=== PATIENT | female | born 1995 | race Caucasian/White ===

== ENCOUNTER 2016-10-03 22:20 | Emergency (ER) | payer OTHER ==
[2016-10-03 22:41] VITALS: BP 117/67; PULSE 87; TEMP 98.1; BMI 23.8
[2016-10-03 22:53] LABS: URINE APPEARANCE CLOUDY; URINE BILIRUBIN NEGATIVE (NEGATIVE); URINE COLOR RED; URINE GLUCOSE (UA) NEGATIVE (NEGATIVE); URINE KETONE NEGATIVE (NEGATIVE); URINE NITRITE NEGATIVE (NEGATIVE); URINE UROBILINOGEN NEGATIVE E.U./dl (0.2-1.0)
[2016-10-03 22:54] LABS: URINE BLOOD 3+ (NEGATIVE); URINE LEUK ESTERASE 2+ (NEGATIVE); URINE PROTEIN 2+ (NEGATIVE)
[2016-10-03 22:57] LABS: URINE RBC 3376 /hpf (0-3); URINE WBC 265 /hpf (3-5); YEAST MANY
--- NOTE | 2016-10-03 23:12 | PDOC ---
History of Present Illness <Korin Beckford - Last Filed: 10/03/16 23:32> - History of Present Illness Initial Comments: 10/03/16 23:27 Patient is a 20 year old female with significant medical hx of hemorrhagic cystitis who is presenting to the ED for four days of hematuria. Patient complains of associated pelvic pain, lower back pain, dysuria, nausea and chills. Today the patient had over ten episodes of blood in her urine. She reports it is similar to her episode of hemorrhagic cystics several years ago. no pmh here for hematuria 4 days of pelvic pain lower back pain today she had over 10 episodes of blood in the urine. <Pilar Vazquez - Last Filed: 10/03/16 23:49> - General Chief Complaint: Hematuria Stated Complaint: HEMATURIA Time Seen by Provider: 10/03/16 22:32 Past History - Past Medical History Asthma: No Cancer: No Cardiac Disorders: No Diabetes: No HTN: No Seizures: No Thyroid Disease: No - Immunization History Immunization Up to Date: Yes - Psycho/Social/Smoking Cessation Hx Anxiety: No Suicidal Ideation: No Smoking Status: No Smoking History: Never smoked Number of Cigarettes Smoked Daily: 0 Information on smoking cessation initiated: No Hx Alcohol Use: No Drug/Substance Use Hx: No Substance Use Type: None Hx Substance Use Treatment: No <Korin Beckford - Last Filed: 10/03/16 23:32> <Pilar Vazquez - Last Filed: 10/03/16 23:49> - Past Medical History Allergies/Adverse Reactions: Allergies Allergy/AdvReac Type Severity Reaction Status Date / Time No Known Allergies Allergy Verified 10/03/16 22:28 Home Medications: Ambulatory Orders Acetaminophen [Tylenol] 650 mg PO PRN 10/03/16 Miconazole Nitrate [Monistat-7] 100 mg PV HS #7 supp.vag 10/03/16 Sulfamethoxazole/Trimethoprim [Bactrim Ds -] 1 tab PO BID #20 tablet 10/03/16 Review of Systems - Review of Systems Comments:: 10/03/16 23:45 CONSTITUTIONAL: Present: chills Absent: fever, diaphoresis, generalized weakness, malaise, loss of appetite HEENT: Absent: rhinorrhea, nasal congestion, throat pain, throat swelling, difficulty swallowing, mouth swelling, ear pain, eye pain, visual changes CARDIOVASCULAR: Absent: chest pain, syncope, palpitations, irregular heart rate, lightheadedness , peripheral edema RESPIRATORY: Absent: cough, shortness of breath, dyspnea with exertion, orthopnea, wheezing, stridor, hemoptysis GASTROINTESTINAL: Present: nausea Absent: abdominal pain, abdominal distension, vomiting, diarrhea, constipation, melena, hematochezia GENITOURINARY: Present: hematuria, dysuria Absent: frequency, urgency, hesitancy, flank pain, genital pain MUSCULOSKELETAL: Present: lower back pain, pelvic pain Absent: myalgia, arthralgia, joint swelling SKIN: Absent: rash, itching, pallor HEMATOLOGIC/IMMUNOLOGIC: Absent: easy bleeding, easy bruising, lymphadenopathy, frequent infections ENDOCRINE: Absent: unexplained weight gain, unexplained weight loss, heat intolerance, cold intolerance NEUROLOGIC: Absent: headache, focal weakness or paresthesia, dizziness, unsteady gait, seizure, mental status changes, bladder or bowel incontinence. PSYCHIATRIC: Absent: anxiety, depression, suicidal or homicidal ideation, hallucinations <Pilar Vazquez - Last Filed: 10/03/16 23:49> *Physical Exam - Vital Signs Last Vital Signs Temp Pulse Resp BP Pulse Ox 98.1 F 87 14 117/67 98 10/03/16 22:28 10/03/16 22:28 10/03/16 22:28 10/03/16 22:28 10/03/16 22:28 <Korin Beckford - Last Filed: 10/03/16 23:32> - Vital Signs Last Vital Signs Temp Pulse Resp BP Pulse Ox 98.1 F 87 14 117/67 98 10/03/16 22:28 10/03/16 22:28 10/03/16 22:28 10/03/16 22:28 10/03/16 22:28 - Physical Exam Comments: 10/03/16 23:48 GENERAL: Well developed, well nourished. Awake and alert. No acute distress. HEENT: Normocephalic, atraumatic. PERRLA, EOMI. No conjunctival pallor. Sclera are non- icteric. Moist mucous membranes. Oropharynx is clear. NECK: Supple. Full ROM. No JVD. Carotid pulses 2+ and symmetric, without bruits. No thyromegaly. No lymphadenopathy. CARDIOVASCULAR: Regular rate and rhythm. No murmurs, rubs, or gallops. Distal pulses are 2+ and symmetric. PULMONARY: No evidence of respiratory distress. Lungs clear to auscultation bilaterally. No wheezing, rales or rhonchi. ABDOMINAL: Soft. Non-tender. Non-distended. No rebound or guarding. No organomegaly. Normoactive bowel sounds. MUSCULOSKELETAL: Normal range of motion at all joints. No bony deformities or tenderness. No CVA tenderness. EXTREMITIES: No cyanosis. No clubbing. No edema. No calf tenderness. SKIN: Warm and dry. Normal capillary refill. No rashes. No jaundice. NEUROLOGICAL: Alert, awake, appropriate. Cranial nerves 2-12 intact. Normal speech. Gait is normal without ataxia. PSYCHIATRIC: Cooperative. Good eye contact. Appropriate mood and affect. <Pilar Vazquez - Last Filed: 10/03/16 23:49> ED Treatment Course - ADDITIONAL ORDERS Additional order review: Laboratory Results 10/03/16 22:11 Urine Color Red Urine Appearance Cloudy Urine pH 6.0 Ur Specific [place] 1.011 Urine Protein 2+ H Urine Glucose (UA) Negative Urine Ketones Negative Urine Blood 3+ H Urine Nitrite Negative Urine Bilirubin Negative Urine Urobilinogen Negative Ur Leukocyte Esterase 2+ H Urine RBC 3376 Urine WBC 265 Urine Yeast Many Urine HCG, Qual Negative <Korin Beckford - Last Filed: 10/03/16 23:32> - ADDITIONAL ORDERS Additional order review: Laboratory Results 10/03/16 22:11 Urine Color Red Urine Appearance Cloudy Urine pH 6.0 Ur Specific [place] 1.011 Urine Protein 2+ H Urine Glucose (UA) Negative Urine Ketones Negative Urine Blood 3+ H Urine Nitrite Negative Urine Bilirubin Negative Urine Urobilinogen Negative Ur Leukocyte Esterase 2+ H Urine RBC 3376 Urine WBC 265 Urine Yeast Many Urine HCG, Qual Negative <Pilar Vazquez - Last Filed: 10/03/16 23:49> *DC/Admit/Observation/Transfer <Korin Beckford - Last Filed: 10/03/16 23:32> - Attestations Scribe Attestion: 10/03/16 23:49 Documentation prepared by Pilar Vazquez, acting as anesthesiology medical doctor for Korin Beckford MD. <Pilar Vazquez - Last Filed: 10/03/16 23:49> Diagnosis at time of Disposition: Hemorrhagic cystitis, Yeast infection - Discharge Dispostion Disposition: HOME Condition at time of disposition: Stable - Prescriptions Prescriptions: Sulfamethoxazole/Trimethoprim [Bactrim Ds -] 1 tab PO BID #20 tablet Miconazole Nitrate [Monistat-7] 100 mg PV HS #7 supp.vag - Referrals Referrals: Ana Winkler MD [Primary Care Provider] - - Patient Instructions Printed Discharge Instructions: DI for Hemorrhagic Cystitis, DI for Vaginal Yeast Infection Additional Instructions: please grape picker your prescriptions at [facility]
[2016-10-03] MEDS ORDERED: FLUCONAZOLE 100 MG TABLET (UD) PO ONE (23:26)
[2016-10-03] MEDS ORDERED: SULFAMETHOXAZOLE/TRIMETHOPRIM 800MG/160MG D.S. TABLET PO ONE (23:26)
[2016-10-03] MEDS ORDERED: SULFAMETHOXAZOLE/TRIMETHOPRIM 800MG/160MG D.S. TABLET ONE (23:36)
[2016-10-03] MEDS ORDERED: FLUCONAZOLE 100 MG TABLET (UD) ONE (23:36)
== END 2016-10-03 23:41 | disposition home or self-care (01) ==
LOC: JER 22:20
DX: N30.01 Acute cystitis with hematuria (principal); B37.3 Candidiasis of vulva and vagina
CPT/HCPCS: 81003; 81015; 84703; 87086; 99281-25

== ENCOUNTER 2017-07-27 02:06 | Emergency (ER) | payer OTHER ==
--- NOTE | 2017-07-27 02:31 | PDOC ---
History of Present Illness - General Stated Complaint: PAIN WITH URINATION Time Seen by Provider: 07/27/17 02:10 History Source: Patient Exam Limitations: No Limitations - History of Present Illness Travel History: No Initial Comments: 07/27/17 02:26 21yo Female patient with no significant past medical history presented to ED c/ o urine symptoms that began this morning. Patient states having burning on urination with suprapubic pain. She denies fever, n/v/d, back pain, CP, diff breathing. LNMP: . Patient reports she has an IUD placed and is not sure if this is what is causing her symptoms. Timing/Duration: reports: getting worse. denies: constant, changing over time, intermittent, resolved prior to arrival, gone now, other Quality: reports: moderate, burning. denies: mild, severe, aching, cramping, dullness, fullness, sharpness, stabbing, throbbing, other Abdominal Pain Onset Location: reports: suprapubic. denies: RUQ, LUQ, RLQ, LLQ , epigastric, periumbilical, generalized abdomen, flank, unknown, other Pain Radiation: reports: no radiation. denies: RUQ, LUQ, RLQ, LLQ, epigastric, periumbilical, flank, groin, scapula, shoulder, chest, back, other Activities at Onset: reports: none. denies: exertion, emotional upset, rest, sleep, no specific activity, eating, working, sexual intercourse, other Treatment Prior to Arrive: worse with: analgesics, antacids, cold pack, heat, laxative, enema, other Aggravating Factors: worse with: None, Defecation, Eating, Emotional upset, Exertion, [place], Movement, Voiding, Change in position Alleviating Factors: worse with: None, Belching, Shallow Breathing, Defecation, Eating, Holding Breath, Passing Gas, Change in Position, Rest, Voiding, Vomiting Past History - Travel Traveled outside of the country in the last 30 days: No Close contact w/someone who was outside of country & ill: No - Past Medical History Allergies/Adverse Reactions: Allergies Allergy/AdvReac Type Severity Reaction Status Date / Time No Known Allergies Allergy Verified 10/03/16 22:28 Home Medications: Ambulatory Orders NK [No Known Home Medication] 07/27/17 Asthma: No Cancer: No Cardiac Disorders: No Diabetes: No HTN: No Seizures: No Thyroid Disease: No - Immunization History Immunization Up to Date: Yes - Suicide/Smoking/Psychosocial Hx Smoking Status: No Smoking History: Never smoked Number of Cigarettes Smoked Daily: 0 Hx Alcohol Use: No Drug/Substance Use Hx: No Substance Use Type: None Hx Substance Use Treatment: No Abd/GI Specific PMHX - Complaint Specific PMHX Colitis: No Diverticulitis: No Gall Bladder Disease: No GERD: No Hepatitis: No Irritable Bowel Synd (IBS): No Pancreatitis: No GI Ulcer Disease: No Review of Systems - Review of Systems Able to Perform ROS?: Yes Is the patient limited Hebrew proficient: No Constitutional: No: Chills, Fever Respiratory: No: Cough ABD/GI: Yes: Abdominal cramping (Suprapubic discomfort) : Yes: Burning, Pain. No: Discharge, Frequency, Flank Pain, Hematuria, Urgency All Other Systems: Reviewed and Negative *Physical Exam - Physical Exam General Appearance: Yes: Nourished, Appropriately Dressed. No: Apparent Distress, Mild Distress, Moderate Distress, Severe Distress Respiratory/Chest: positive: Lungs Clear, Normal Breath Sounds. negative: Chest Tender, Respiratory Distress, Accessory Muscle Use, Labored Respiration, Rapid RR, Paradoxal Breathing, Crackles, Rhonchi, Stridor, Wheezing Cardiovascular: positive: Regular Rhythm, Regular Rate. negative: Tachycardia Gastrointestinal/Abdominal: positive: Normal Bowel Sounds, Flat, Soft. negative : Tender, Distended, Guarding, Rebound, Tenderness Musculoskeletal: positive: Normal Inspection. negative: CVA Tenderness Extremity: positive: Normal Capillary Refill, Normal Inspection, Normal Range of Motion. negative: Pedal Edema, Swelling, Calf Tenderness, Erythema, Inflammation Integumentary: positive: Normal Color, Dry, Warm Neurologic: positive: de icer installer II-XII NML intact, Fully Oriented, Alert, Normal Mood/ Affect, Normal Response, Motor Strength 5/5 *DC/Admit/Observation/Transfer Diagnosis at time of Disposition: Vaginal pain - Discharge Dispostion Disposition: HOME Condition at time of disposition: Stable Admit: No - Referrals Referrals: Ana Winkler MD [Primary Care Provider] - - Patient Instructions Printed Discharge Instructions: DI for Dysuria -- Adult Additional Instructions: Follow up with your MAINTENANCE CLERK within 3 days or next week for further evaluation. Call to schedule appointment. Return if symptoms worsen or any concerns for further evaluation. Print Language: VIET[place]ESE - Post Discharge Activity
[2017-07-27 02:49] VITALS: BP 109/60; TEMP 98.7; BMI 23.8
--- NOTE | 2017-07-27 02:51 | PDOC ---
*Physical Exam - Vital Signs Last Vital Signs Temp Pulse Resp BP Pulse Ox 98.7 F 18 L 77 H 109/60 100 07/27/17 02:39 07/27/17 02:39 07/27/17 02:39 07/27/17 02:39 07/27/17 02:39 Medical Decision Making - Medical Decision Making 07/27/17 02:50 agree with care from ICER MACHINE OPERATOR Vinod *DC/Admit/Observation/Transfer Diagnosis at time of Disposition: Vaginal pain - Discharge Dispostion Disposition: HOME Condition at time of disposition: Stable - Referrals Referrals: Ana Winkler MD [Primary Care Provider] - - Patient Instructions Printed Discharge Instructions: DI for Dysuria -- Adult Additional Instructions: Follow up with your MECHANICAL DRAFTER within 3 days or next week for further evaluation. Call to schedule appointment. Return if symptoms worsen or any concerns for further evaluation. Print Language: CHINESE - Post Discharge Activity
[2017-07-27 03:41] LABS: URINE APPEARANCE CLEAR; URINE BILIRUBIN NEGATIVE (NEGATIVE); URINE BLOOD 2+ (NEGATIVE); URINE COLOR LT. YELLOW; URINE GLUCOSE (UA) NEGATIVE (NEGATIVE); URINE KETONE NEGATIVE (NEGATIVE); URINE NITRITE NEGATIVE (NEGATIVE); URINE UROBILINOGEN 0.2 mg/dL (0.2-1.0)
[2017-07-27 03:43] LABS: URINE PROTEIN 1+ (NEGATIVE)
[2017-07-27 03:46] LABS: URINE BACTERIA FEW /hpf (NONE SEEN); URINE MUCUS RARE; URINE RBC 144 /hpf (0-3); URINE WBC 85 /hpf (3-5)
[2017-07-27 04:16] VITALS: PULSE 77
[2017-07-27] MEDS ORDERED: AZITHROMYCIN 1 GM PACKET PO ONE (04:25)
[2017-07-27] MEDS ORDERED: LIDOCAINE HCL 1%, 10 MG/ML (50 mL VIAL) INF ONE (04:25)
[2017-07-27] MEDS ORDERED: AZITHROMYCIN 250 MG TABLET ONE (04:33)
[2017-07-27] MEDS ORDERED: LIDOCAINE HCL 1%, 10 MG/ML (20ML VIAL) ONE (04:33)
[2017-07-27] MEDS ORDERED: cefTRIAXone SODIUM 1 GM VIAL ONE (04:33)
[2017-07-27 12:00] LABS: URINE LEUK ESTERASE Negative (NEGATIVE)
== END 2017-07-27 05:00 | disposition home or self-care (01) ==
LOC: JER 02:06
DX: R10.2 Pelvic and perineal pain (principal)
CPT/HCPCS: 36415; 81003; 81015; 84703; 87070; 87086; 87186; 87205; 87491; 87591; 99283-25

== ENCOUNTER 2019-03-26 19:22 | Emergency (ER) | payer OTHER ==
--- NOTE | 2019-03-26 19:31 | PDOC ---
Rapid Medical Evaluation Time Seen by Provider: 03/26/19 19:29 Medical Evaluation: Allergies Allergy/AdvReac Type Severity Reaction Status Date / Time No Known Allergies Allergy Verified 10/03/16 22:28 03/26/19 19:29 HPI: Fever x2 days PE: OP Clear ORDERS: Rapid strep Tylenol Discharge Disposition - Diagnosis Sore throat - Referrals - Patient Instructions - Post Discharge Activity
[2019-03-26] MEDS ORDERED: ACETAMINOPHEN 500 MG TABLET (FP) PO ONE (19:32)
[2019-03-26 19:37] VITALS: BP 116/63; PULSE 94; TEMP 98.9; BMI 25.4
[2019-03-26] MEDS ORDERED: ACETAMINOPHEN 500 MG TABLET (FP) ONE (21:19)
--- NOTE | 2019-03-26 22:03 | PDOC ---
History of Present Illness - General Chief Complaint: Sore Throat Stated Complaint: FEVER Time Seen by Provider: 03/26/19 19:29 - History of Present Illness Initial Comments: 03/26/19 21:59 CHIEF COMPLAINT: fever, sore throat HISTORY OF PRESENT ILLNESS: 23 yo F presents to [facility] with sore throat, headache, and fever x 3 days. Patient denies any URI symptoms including cough, runny nose, sneezing. No recent travel or sick contacts. PAST MEDICAL HISTORY: Denies past medical history FAMILY HISTORY: Denies SOCIAL HISTORY: Denies tobacco, alcohol, illicit drug use. SURGICAL HISTORY: Denies ALLERGIES: No known drug allergies REVIEW OF SYSTEMS General/Constitutional: Fever, Tmax 104. HEENT: Denies change in vision. Denies ear pain or discharge. Denies sore throat. Cardiovascular: Denies chest pain or shortness of breath. Respiratory: Denies cough, wheezing, or hemoptysis. Gastrointestinal: Denies nausea, vomiting, diarrhea or constipation. Denies rectal bleeding. Genitourinary: Denies dysuria, frequency, or change in urination. Musculoskeletal: Denies joint or muscle swelling or pain. Denies neck or back pain. Skin and breasts: Denies rash or easy bruising. Neurologic: Denies headache, vertigo, loss of consciousness, or loss of sensation. PHYSICAL EXAM General Appearance: Well-appearing, appropriately dressed. No apparent distress , no intoxication. HEENT: EOMI, PERRLA, normal ENT inspection, normal voice, TMs normal, pharynx normal. No conjunctival pallor. No photophobia, scleral icterus. Neck: Supple. Trachea midline. No tenderness, rigidity, carotid bruit, stridor , lymphadenopathy, or thyromegaly. Respiratory/Chest: Lungs CTAB. No shortness of breath, chest tenderness, respiratory distress, accessory muscle use. No crackles, rales, rhonchi, stridor , wheezing, dullness Cardiovascular: RRR. S1, S2. No JVD, murmur, bradycardia, tachycardia. Vascular Pulses: Dorsalis-Pedis (R): 2+, Dorsalis-Pedis (L): 2+ Gastrointestinal/Abdominal: Normal bowel sounds. Abdomen soft, non-distended. No tenderness or rebound tenderness. No organomegaly, pulsatile mass, guarding , hernia, hepatomegaly, splenomegaly. Lymphatic: No adenopathy, tenderness. Musculoskeletal/Extremities: Normal inspection. FROM of all extremities, normal capillary refill. Pelvis Stable. No CVA tenderness. No tenderness to extremities, pedal edema, swelling, erythema or deformity. Integumentary: Appropriate color, dry, warm. No cyanosis, erythema, jaundice or rash Neurologic: air conditioning coil assembler II-XII intact. Fully oriented, alert. Appropriate mood/affect. Motor strength 5/5. No appreciable EOM palsy, facial droop or sensory deficit. 03/26/19 22:03 Past History - Past Medical History Allergies/Adverse Reactions: Allergies Allergy/AdvReac Type Severity Reaction Status Date / Time No Known Allergies Allergy Verified 10/03/16 22:28 Home Medications: Ambulatory Orders Ibuprofen [Ibu] 600 mg PO TID #30 tablet 03/26/19 Anemia: No Asthma: No Cancer: No Cardiac Disorders: No CVA: No COPD: No DVT: No Dementia: No Diabetes: No Dialysis: No GI Disorders: No Disorders: No HTN: No Hypercholesterolemia: No Kidney Stones: No Liver Disease: No Psychiatric Problems: No Seizures: No Thyroid Disease: No Lung CA: No - Immunization History Immunization Up to Date: Yes - Suicide/Smoking/Psychosocial Hx Smoking Status: No Smoking History: Never smoked Number of Cigarettes Smoked Daily: 0 Hx Alcohol Use: No Drug/Substance Use Hx: No Substance Use Type: None Hx Substance Use Treatment: No *Physical Exam - Vital Signs Last Vital Signs Temp Pulse Resp BP Pulse Ox 98.9 F 94 H 20 116/63 98 03/26/19 19:30 03/26/19 19:30 03/26/19 19:30 03/26/19 19:30 03/26/19 19:30 ED Treatment Course - ADDITIONAL ORDERS Additional order review: Laboratory Results 03/26/19 21:25 Urine HCG, Qual Negative - Medications Given in the ED: ED Medications Discontinued Medications Generic Name Dose Route Start Last Admin Trade Name Freq PRN Reason Stop Dose Admin Acetaminophen 1,000 mg 03/26/19 19:32 03/26/19 21:20 Tylenol - PO 03/26/19 19:33 1,000 mg ONCE ONE Administration Medical Decision Making - Medical Decision Making 03/26/19 22:04 23 yo F presents to [facility] with sore throat, headache, and fever x 3 days. -VSS -strep swab Patient also requests hcg. Exam unremarkable. Strep negative. HCG negative. Clinical presentation consistent with viral illness. Advised patient to take medication as prescribed and follow up with PCP if symptoms persist. Advised patient of signs and symptoms for return to ED. Patient verbalized understanding and agrees to plan. *DC/Admit/Observation/Transfer Diagnosis at time of Disposition: Viral illness - Discharge Dispostion Disposition: HOME Condition at time of disposition: Stable - Prescriptions Prescriptions: Ibuprofen [Ibu] 600 mg PO TID #30 tablet - Referrals Referrals: Ana Winkler MD [Primary Care Provider] - - Patient Instructions Printed Discharge Instructions: DI for Viral Syndrome - Post Discharge Activity
== END 2019-03-26 22:28 | disposition home or self-care (01) ==
LOC: JERFT 19:22 → JER 19:22 → JERFT 22:28
DX: B34.9 Viral infection, unspecified (principal)
CPT/HCPCS: 84703; 87070; 87880; 99281-25

== ENCOUNTER 2020-07-15 16:46 | Emergency (ER) | payer OTHER ==
[2020-07-15 16:56] VITALS: BP 110/67; PULSE 109; TEMP 98.2; BMI 21.7
[2020-07-15] MEDS ORDERED: SODIUM CHLORIDE 1,000 ML IV STA (17:55)
[2020-07-15 18:29] LABS: BASO % 0.5 % (0-2.0); EOS % 0.6 % (0-4.5); HEMATOCRIT 38.1 % (32.4-45.2); LYMPH % 15.5 % (8-40); MCH 27.9 pg (25.7-33.7); MCHC 34.1 g/dl (32.0-36.0); MEAN CELL VOLUME 81.9 fl (80-96); MEAN PLT VOLUME 8.6 fl (7.5-11.1); MONO % 7.3 % (3.8-10.2); NEUT % 76.1 % (42.8-82.8); PLATELET COUNT 281 K/MM3 (134-434); RBC 4.65 M/mm3 (3.60-5.2); RDW 17.8 % (11.6-15.6); WHITE BLOOD COUNT 10.6 K/mm3 (4.0-10.0)
[2020-07-15 19:30] LABS: ALBUMIN 3.4 g/dl (3.4-5.0); BLOOD UREA NITROGEN 9.1 mg/dL (7-18)
[2020-07-15 19:31] LABS: URINE APPEARANCE CLEAR; URINE BILIRUBIN NEGATIVE (NEGATIVE); URINE COLOR YELLOW; URINE GLUCOSE (UA) NEGATIVE (NEGATIVE); URINE KETONE NEGATIVE (NEGATIVE); URINE LEUK ESTERASE NEGATIVE (NEGATIVE); URINE NITRITE NEGATIVE (NEGATIVE); URINE PROTEIN NEGATIVE (NEGATIVE); URINE UROBILINOGEN 0.2 mg/dL (0.2-1.0)
[2020-07-15 19:34] LABS: CREATININE 0.6 mg/dL (0.55-1.3)
[2020-07-15 19:35] LABS: BILIRUBIN,TOTAL 0.2 mg/dL (0.2-1); TOT PROT 7.2 g/dl (6.4-8.2)
== END 2020-07-15 20:10 | disposition home or self-care (01) ==
LOC: JER 16:46
PROC: 3E0337Z Introduction of Electrolytic and Water Balance Substance into Peripheral Vein, Percutaneous Approach (ICD-10-PCS; principal; 2020-07-15)
DX: B37.9 Candidiasis, unspecified (principal)
CPT/HCPCS: 36415; 76816-TC; 80053; 81003; 85025; 86850; 86900; 86901; 87086; 87186; 99284-25

== ENCOUNTER 2020-12-12 21:21 | Inpatient (IN) | payer OTHER ==
[2020-12-12 23:41] LABS: BASO % 0.7 % (0-2.0); EOS % 1.2 % (0-4.5); HEMATOCRIT 36.5 % (32.4-45.2); HEMOGLOBIN 12.5 GM/dL (10.7-15.3); MCH 29.4 pg (25.7-33.7); MCHC 34.3 g/dl (32.0-36.0); MEAN CELL VOLUME 85.5 fl (80-96); MEAN PLT VOLUME 9.2 fl (7.5-11.1); MONO % 9.7 % (3.8-10.2); NEUT % 70.4 % (42.8-82.8); PLATELET COUNT 281 K/MM3 (134-434); RBC 4.27 M/mm3 (3.60-5.2); RDW 14.2 % (11.6-15.6); WHITE BLOOD COUNT 10.4 K/mm3 (4.0-10.0)
[2020-12-12 23:46] LABS: INR 0.87 (0.83-1.09); PROTHROMBIN TIME (PATIENT) 10.7 SEC (9.7-13.0)
[2020-12-12 23:49] LABS: ACTIVATED PTT 27.7 SECONDS (25.2-36.5)
[2020-12-12 23:50] LABS: PH,URINE 7.5 (5.0-8.0); URINE APPEARANCE CLEAR; URINE BILIRUBIN NEGATIVE (NEGATIVE); URINE COLOR YELLOW; URINE GLUCOSE (UA) NEGATIVE (NEGATIVE); URINE KETONE NEGATIVE (NEGATIVE); URINE LEUK ESTERASE NEGATIVE (NEGATIVE); URINE NITRITE NEGATIVE (NEGATIVE); URINE PROTEIN NEGATIVE (NEGATIVE); URINE UROBILINOGEN 0.2 mg/dL (0.2-1.0)
[2020-12-12 23:58] VITALS: BMI 26.9
[2020-12-13 00:05] LABS: ALBUMIN 2.9 g/dl (3.4-5.0); BLOOD UREA NITROGEN 5.6 mg/dL (7-18); CALCIUM 9.2 mg/dL (8.5-10.1)
[2020-12-13 00:07] LABS: CREATININE 0.5 mg/dL (0.55-1.3)
[2020-12-13 00:09] LABS: BILIRUBIN,TOTAL 0.4 mg/dL (0.2-1); TOT PROT 6.7 g/dl (6.4-8.2)
[2020-12-13 00:13] LABS: EPI CELLS 3 /uL (0-25.1); HYALINE CASTS 0 /uL (0-3.1); URINE BACTERIA 42 /uL (0-1359); URINE RBC 3 /uL (0-23.9); URINE WBC 1 /uL (0-25.8)
[2020-12-13] MEDS ORDERED: ACETAMINOPHEN 325 MG TABLET (FP) ONE (00:13)
[2020-12-13] MEDS ORDERED: BUTORPHANOL TARTRATE 2 MG/ML VIAL IVPB ONE (00:20)
[2020-12-13] MEDS ORDERED: ELECTROLYTE-148 SOLN 1,000 ML IV SCH (00:20)
[2020-12-13] MEDS ORDERED: ACETAMINOPHEN 325 MG TABLET (FP) PO ONE (00:20)
[2020-12-13] MEDS ORDERED: PROMETHAZINE HCL 25 MG/1 ML VIAL IVPB ONE (00:20)
[2020-12-13 00:59] LABS: HIV INTERPRETATION NEGATIVE (NEGATIVE)
[2020-12-13] MEDS ORDERED: OXYTOCIN 30 UNITS in 0.9% NS 30 UNIT/500 ML INFUS.BAG IVPB SCH (01:00)
[2020-12-13] MEDS ORDERED: OXYTOCIN 30 UNITS in 0.9% NS 30 UNIT/500 ML INFUS.BAG IVPB ONE (02:00)
[2020-12-13] MEDS ORDERED: BUTORPHANOL TARTRATE 1 MG/ML VIAL ONE ×2 (04:36)
[2020-12-13] MEDS ORDERED: PROMETHAZINE HCL 25 MG/1 ML VIAL ONE (04:37)
[2020-12-13] MEDS ORDERED: OXYTOCIN 20 UNITS in 0.9% NS 20 UNIT/1,000 ML INFUS.BAG IV ONE (06:56)
[2020-12-13] MEDS: OXYTOCIN 20 UNITS in 0.9% NS 20 UNIT/1,000 ML INFUS.BAG IV SCH (07:55)
[2020-12-13] MEDS ORDERED: WITCH HAZEL 50% (TUCKS) 40 PAD/JAR PAD TP PRN (08:25)
[2020-12-13] MEDS ORDERED: BISACODYL 10 MG SUPP.RECT RC PRN (08:25)
[2020-12-13] MEDS ORDERED: METHYLERGONOVINE MALEATE 0.2 MG/1 ML AMP IM PRN (08:25)
[2020-12-13] MEDS ORDERED: BENZOCAINE 28 GM HEMORRHOIDAL OINTMENT TP PRN (08:25)
[2020-12-13] MEDS: PRENATAL VITAMINS W/ FOLIC ACID TABLET (FP) PO SCH (11:00)
[2020-12-13] MEDS: FERROUS SO4 325 MG TABLET (FP) PO SCH ×2 (11:00→17:47)
[2020-12-13] MEDS: ACETAMINOPHEN 325 MG TABLET (FP) PO PRN ×2 (11:07→17:48)
[2020-12-13] MEDS: IBUPROFEN 600 MG TABLET (FP) PO PRN ×2 (11:08→17:47)
[2020-12-13] MEDS: BENZOCAINE 20% 57 GM BOTTLE TP PRN (11:11)
[2020-12-14] MEDS: ACETAMINOPHEN 325 MG TABLET (FP) PO PRN ×3 (02:41→17:07)
[2020-12-14] MEDS: IBUPROFEN 600 MG TABLET (FP) PO PRN ×3 (02:42→17:07)
[2020-12-14 08:04] LABS: POC NITRAZINE POS
[2020-12-14 08:23] LABS: BASO % 0.6 % (0-2.0); EOS % 1.3 % (0-4.5); HEMATOCRIT 30.3 % (32.4-45.2); HEMOGLOBIN 10.6 GM/dL (10.7-15.3); LYMPH % 22.7 % (8-40); MCH 29.5 pg (25.7-33.7); MCHC 34.9 g/dl (32.0-36.0); MEAN CELL VOLUME 84.6 fl (80-96); MEAN PLT VOLUME 8.5 fl (7.5-11.1); MONO % 9.3 % (3.8-10.2); NEUT % 66.1 % (42.8-82.8); PLATELET COUNT 231 K/MM3 (134-434); RBC 3.58 M/mm3 (3.60-5.2); RDW 14.2 % (11.6-15.6); WHITE BLOOD COUNT 11.8 K/mm3 (4.0-10.0)
[2020-12-14] MEDS: FERROUS SO4 325 MG TABLET (FP) PO SCH ×2 (08:46→17:07)
[2020-12-14] MEDS: OXYTOCIN 20 UNITS in 0.9% NS 20 UNIT/1,000 ML INFUS.BAG IV SCH (08:47)
[2020-12-14] MEDS: PRENATAL VITAMINS W/ FOLIC ACID TABLET (FP) PO SCH (09:06)
[2020-12-14 21:51] VITALS: TEMP 98.5
[2020-12-14] MEDS ORDERED: SENNOSIDES/DOCUSATE COMBO (SENNA PLUS) TABLET (UD) PO PRN (22:00)
[2020-12-15] MEDS: IBUPROFEN 600 MG TABLET (FP) PO PRN (07:31)
[2020-12-15] MEDS: ACETAMINOPHEN 325 MG TABLET (FP) PO PRN (07:32)
[2020-12-15] MEDS: FERROUS SO4 325 MG TABLET (FP) PO SCH (07:32)
[2020-12-15 07:37] VITALS: BP 106/69; PULSE 69
[2020-12-15] MEDS: BENZOCAINE 20% 57 GM BOTTLE TP PRN (07:56)
[2020-12-15] MEDS: OXYTOCIN 20 UNITS in 0.9% NS 20 UNIT/1,000 ML INFUS.BAG IV SCH (08:57)
[2020-12-15] MEDS: PRENATAL VITAMINS W/ FOLIC ACID TABLET (FP) PO SCH (08:59)
== END 2020-12-15 11:00 | disposition home or self-care (01) | DRG 560 ==
LOC: JDEL 21:21 → JLDR 23:00 → J3W 12-13 09:00
PROVIDERS: ADMIT Obstetrics & Gynecology; ATTEND Obstetrics & Gynecology
PROC: 0HQ9XZZ Repair Perineum Skin, External Approach (ICD-10-PCS; principal; 2020-12-13)
PROC: 10E0XZZ Delivery of Products of Conception, External Approach (ICD-10-PCS; 2020-12-13)
DX: O42.02 Full-term premature rupture of membranes, onset of labor within 24 hours of rupture (principal); O71.82 Other specified trauma to perineum and vulva; Z3A.38 38 weeks gestation of pregnancy; Z37.0 Single live birth
CPT/HCPCS: 36415; 59025; 59409; 80053; 81003; 83986-QW; 85025; 85610; 85730; 86780; 86850; 86900; 86901; 87389; C9803; U0003; U0005

== ENCOUNTER 2021-03-24 11:05 | Emergency (ER) | payer OTHER ==
[2021-03-24 11:17] VITALS: BP 105/63; PULSE 64; TEMP 98.3; BMI 24.1
[2021-03-24 12:48] LABS: EPI CELLS 6 /uL (0-25.1); HYALINE CASTS 9 /uL (0-3.1); URINE APPEARANCE CLOUDY; URINE BACTERIA 390 /uL (0-1359); URINE BILIRUBIN NEGATIVE (NEGATIVE); URINE COLOR YELLOW; URINE GLUCOSE (UA) TRACE (NEGATIVE); URINE KETONE NEGATIVE (NEGATIVE); URINE LEUK ESTERASE 3+ (NEGATIVE); URINE NITRITE NEGATIVE (NEGATIVE); URINE PROTEIN 1+ (NEGATIVE); URINE RBC 385 /uL (0-23.9); URINE WBC 1802 /uL (0-25.8)
[2021-03-24 13:04] LABS: HCG,QUALITATIVE URINE Negative
== END 2021-03-24 13:45 | disposition home or self-care (01) ==
LOC: JER 11:05
DX: N30.01 Acute cystitis with hematuria (principal)
CPT/HCPCS: 36415; 81003; 84703; 87086; 87186; 87491; 87591; 99281-25